=== PATIENT | female | born 1990 | race Caucasian/White ===

== ENCOUNTER 2023-12-12 16:14 | Outpatient (REF) | payer MEDICAID, SELFPAY ==
[2023-12-12 17:34] LABS: Bacterial Vaginosis PCR NEGATIVE (Negative); Candida Group PCR DETECTED (Not Detect); Candida glab krusei PCR NOT DETECTED (Not Detect); Trichomonas vaginalis PCR NOT DETECTED (Not Detect)
[2023-12-12 17:56] LABS: CT PCR NOT DETECTED (Not Detect.); NG PCR NOT DETECTED (Not Detect.)
== END 2023-12-12 16:15 | disposition home or self-care (01) ==
LOC: HO.HHCLNP 16:14
PROVIDERS: Visit Provider Nurse Practitioner Family
DX: R30.0 Dysuria (principal); N89.8 Other specified noninflammatory disorders of vagina
CPT/HCPCS: 0352U; 87086; 87491; 87591

== ENCOUNTER 2023-12-13 08:54 | Outpatient (REF) | payer MEDICAID, SELFPAY ==
[2023-12-13 12:05] LABS: Alanine Aminotransferase 23 U/L (0-31); Albumin Level 4.4 g/dL (3.5-5.0); Alkaline Phosphatase 66 U/L (39-117); Anion Gap 15 (12-20); Aspartate Amino Transferase 25 U/L (5-31); Bilirubin Total 0.2 mg/dL (0.0-1.0); Blood Urea Nitrogen 10 mg/dL (9-16); Calcium 9.5 mg/dL (8.4-10.2); Carbon Dioxide 22 mmol/L (22-29); Chloride 103 mmol/L (96-108); Cholesterol 141 mg/dL (<200); Estimated Glomerular Filt Rate > 60; Glucose Random 87 mg/dL (60-115); HDL Cholesterol 68 mg/dL (>40); LDL Cholesterol Calculated 65 mg/dL (<100); Potassium 3.7 mmol/L (3.3-5.1); Sodium 136 mmol/L (135-145); Total Protein 8.1 g/dL (6.5-8.0); Triglycerides 42 mg/dL (<150)
[2023-12-13 12:20] LABS: HIV AB/AG Nonreactive (Nonreactive); HIV Num 1 0.47 S/CO (0.00-0.99); ~HepC Num1 0.29 S/CO (0.00-0.79); ~Hepatitis B Surface Antibody REACTIVE (Nonreactive); ~Hepatitis C Antibody Nonreactive (Nonreactive)
[2023-12-15 14:13] LABS: RPR Rapid Plasma Reagin NON-REACTIVE (NON-REACTIVE)
== END 2023-12-13 08:55 | disposition home or self-care (01) ==
LOC: HO.HHCL 08:54
PROVIDERS: Visit Provider Nurse Practitioner Family
DX: Z00.00 Encounter for general adult medical examination without abnormal findings (principal)
CPT/HCPCS: 36415; 80053; 80061; 86592; 86706; 86803; 87389

== ENCOUNTER 2024-04-02 17:44 | Outpatient (REF) | payer MEDICAID, SELFPAY ==
[2024-04-03 06:18] LABS: CT PCR NOT DETECTED (Not Detect.); NG PCR NOT DETECTED (Not Detect.)
[2024-04-03 13:38] LABS: Bacterial Vaginosis PCR NEGATIVE (Negative); Candida Group PCR DETECTED (Not Detect); Candida glab krusei PCR NOT DETECTED (Not Detect); Trichomonas vaginalis PCR NOT DETECTED (Not Detect)
== END 2024-04-02 17:45 | disposition home or self-care (01) ==
LOC: HO.HHCLNP 17:44
PROVIDERS: Visit Provider Internal Medicine
DX: N89.8 Other specified noninflammatory disorders of vagina (principal)
CPT/HCPCS: 0352U; 87491; 87591

== ENCOUNTER 2024-10-23 11:36 | Outpatient (REF) | payer MEDICAID, SELFPAY ==
[2024-10-24 13:07] LABS: Bacterial Vaginosis PCR NEGATIVE (Negative); Candida Group PCR DETECTED (Not Detect); Candida glab krusei PCR NOT DETECTED (Not Detect); Trichomonas vaginalis PCR NOT DETECTED (Not Detect)
--- OUTSIDE RECORDS SUMMARY | 2024-10-24 13:24 | XMS_ITS | Patient Health Record ---
Author Organization Dr. Jeff Gentile Address [address] [facility] [address] [address] Care Team Providers Care Miscellaneous Machine Operator Name Role Phone [facility], Primary Care Provider Unavailable Kym Anderson Unavailable [phone] Reason For Referral No Information Medications Medication SIG (Take, Route, Frequency, Duration) Notes Start Date End Date Status Dulcolax 5 MG 2 tablet as needed Orally twice a day for 2 day(s) 12/13/2019 Not-Taking Fleet Enema 7-19 GM/118ML One at night and one the morning of the procedure two hours earlier Rectal 1 for 2 12/13/2019 Not-Taking Magnesium Citrate 1.745 GM/30ML 296 ml Orally three times a day for 1 day(s) 12/13/2019 Not-Wenceslao ing Omeprazole 20 MG 1 capsule Orally twi ce a day for 30 day(s) 12/13/2019 Active Omeprazole Active Baclofen 10 MG 1 tablet with food o r milk Orally twice a day for 30 day(s) 01/15/2020 Active Social History Tobacco Use: Social History Observation Description Date Details (start date - stop date) Never Smoker NA - NA Tobacco Use/Smoking Question Answer Notes Are you a nonsmoker Problems Problem Type SNOMED Code ICD Code Onset Dates Problem Status W/U Status Risk Notes Problem Constipation, unspecified (K59.00) Active confirmed Problem Left upper quadrant pain (181365394) Left upper quadrant pain (R10.12) Active confirmed Problem Irritable bowel syndrome (34879839) Other irritable bowel syndrome (K58.8) Active confirmed Plan Of Treatment Pending Test Test Name Order Date Colonoscopy 10/30/2019 Colonoscopy 12/13/2019 Insurance Providers Payer Name Payer Address Payer Phone Subscriber Number Group Number Insured Name Patient Relationship to Insured Coverage Start Date Coverage End Date [facility] [address] [address] [place] [address] [id number] Doris Short Self - patient is the insured Medical (General) History Medical History History ICD Code acid reflux Surgical History Surgery Date(Month/Year)
[2024-10-24 13:43] LABS: CT PCR NOT DETECTED (Not Detect.); NG PCR NOT DETECTED (Not Detect.)
== END 2024-10-23 11:37 | disposition home or self-care (01) ==
LOC: HO.HHCLNP 11:36
PROVIDERS: Visit Provider Family Medicine
DX: N89.8 Other specified noninflammatory disorders of vagina (principal)
CPT/HCPCS: 81515; 87491; 87591

== ENCOUNTER 2025-02-08 09:41 | Outpatient (REF) | payer MEDICAID, SELFPAY ==
--- OUTSIDE RECORDS SUMMARY | 2025-02-08 09:00 | XMS_ITS | Encounter Summary ---
Author Organization [employer] Address [address] [facility] 7 [place] [address] Care Team Providers Care Order Packer Name Role Phone Sabiha Salvador NP Primary Care Provider [phone] Reason for Referral * Consultation (Routine) - Authorized Specialty Diagnoses / Procedures Referred By Contcristal t Referred To Contact Dental Courier Delivery Driver / Dentistry Diagnoses Health care maintenance Sabiha Salvador NP [address] [place] [address] Phone: tel: fax: Referral ID Status Reason Start Date Expiration Date Visits Requested Visits Authorized [id number] Authorized Consult and Treat 02/08/2025 02/08/2026 1 1 Reason for Visit * Reason Comments transfer patient Encounter Details Date Type Department Care Team ([facility] Contact Info) Description 02/08/2025 9:00 AM EDT Office Visit [facility] MEDICINE [address] [place] [address] Sabiha Salvador NP [address] [place] [address] 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); Tinea; Encounter for initial prescription of contraceptives, unspecified contraceptive; Bilateral carpal tunnel syndrome; Health care maintenance Social History Tobacco Use Types Packs/Day Years Used Date Smoking Tobacco: Never Smokeless Tobacco: Never Alcohol Use Standard Drinks/Week Comments Not Currently 0 (1 standard drink = 0.6 oz pur e alcohol) socially - beer Depression Answer Date Recorded Patient Health Questionnaire-9 Score 0 02/08/2025 Patient Health Questionnaire-9 Score 0 02/08/2025 Last PHQ-9: Questionnaire Data Not on file 0 02/08/2025 Housing Stability Answer Date Recorded What is your housing situation today? I have vidhi walker 01/31/[address] you li ve. Do you have problems with any of the following? None of the above 01/31/2025 Food Insecurity Answer Date Recorded Within the past 12 months, y ou worried that your food would run out before you got money to buy more: Never True 01/31/2025 Within the past 12 months,th e food you bought just didn't last and you didn't have enough money to get more: Never True Transportation Answer Date Recorded In the past 12 months, has l ack of transportation kept you from medical appts, meetings, work or from getting things needed for daily living? No 01/31/2025 Utilities Answer Date Recorded In the past 12 months, has t he electric, gas, oil or water company threatened to shut off services in your home? No 01/31/2025 Depression Answer Date Recorded Patient Health Questionnaire-2 Score 0 02/08/2025 Internet Access Answer Date Recorded Internet Access Q1 Yes 01/31/2025 Internet Access Q2 Not on file 01/31/2025 Comments Unknown Sex and Gender Information Value Date Recorded Sex Assigned at Female 09/21/2023 11:17 AM EDT Legal Sex Female 1:42 PM EDT Gender Identity Female 09/21/2023 11:17 AM EDT Sexual Orientation Straight 03/26/2024 12 :30 PM EST documented as of this encounter Last Filed Vital Signs Vital Sign Reading Time Taken Comments Blood Pressure 122/80 02/08/2025 9:07 AM EDT Pulse 98 02/08/2025 9:07 AM EDT Temperature 36.8 C (98.3 F) 02/08/2025 9:07 AM EDT Respiratory Rate 22 02/08/2025 9:07 AM EDT Oxygen Saturation 99% 02/08/2025 9:07 AM EDT Inhaled Oxygen Concentration - - Weight 69.4 kg (153 lb) 02/08/2025 9:07 AM EDT Height 170.2 cm (5' 7 ) 02/08/2025 9:07 AM EDT Body Mass Index 23.96 02/08/2025 9:07 AM EDT documented in this encounter Functional Status * Over the past 2 weeks, how often have you been bothered by any of the following problems? Question Answer Date of Assessment Author Patient Health Questionnaire -2 Score 0 02/08/2025 9:37 AM EDT Blue Lauren MA * Little interest or pleasure in doing things Answer Date of Assessment Author Not at all 02/08/2025 9:37 AM EDT Blue Lauren MA * Feeling down, depressed, or hopeless Answer Date of Assessment Author Not at all 02/08/2025 9:37 AM EDT Blue Lauren MA * Trouble falling or staying asleep, or sleeping too much Answer Date of Assessment Author Not at all 02/08/2025 9:37 AM EDT Blue Lauren MA * Feeling tired or having little energy Answer Date of Assessment Author Not at all 02/08/2025 9:37 AM EDT Blue Lauren MA * Poor appetite or overeating Answer Date of Assessment Author Not at all 02/08/2025 9:37 AM EDT Blue Lauren MA * Feeling bad about yourself - or that you are a failure or have let yourself or your family down Answer Date of Assessment Author Not at all 02/08/2025 9:37 AM EDT Blue Lauren MA * Trouble concentrating on things, such as reading the newspaper or watching television Answer Date of Assessment Author Not at all 02/08/2025 9:37 AM EDT Blue Lauren MA * Moving or speaking so slowly that other people could have noticed? Or the opposite - being so fidgety or restless that you have been moving around a lot more than usual. Answer Date of Assessment Author Not at all 02/08/2025 9:37 AM JAYDENT Blue Lauren MA * Thoughts that you would be better off or hurting yourself in some way Answer Date of Assessment Author Not at all 02/08/2025 9:37 AM JAYDENT Blue Lauren MA * Patient Health Questionnaire-9 Score Answer Date of Assessment Author 0 02/08/2025 9:37 AM EDT Blue Lauren MA * Over the last 2 weeks, how often have you been bothered by any of the following problems? Question Answer Date of Assessment Author Feeling nervous, anxious, or on edge 0 02/08/2025 9:37 AM EDT Blue Lauren MA Not being able to stop or co ntrol worrying 0 02/08/2025 9:37 AM EDT Blue Lauren MA Worrying too much about diff erent things 0 02/08/2025 9:37 AM EDT Blue Lauren MA Trouble relaxing 0 02/08/2025 9:37 AM EDT Blue Poe MA Being so restless that it is hard to sit still 0 02/08/2025 9:37 AM EDT Blue Lauren MA Becoming easily annoyed or irritable 0 02/08/2025 9:37 AM EDT Blue Lauren MA Feeling afraid as if somethi ng awful might happen 0 02/08/2025 9:37 AM EDT Blue Lauren MA AKIRA-7 Total Score 0 02/08/2025 9:37 AM EDT Blue Lauren MA documented as of this encounter Miscellaneous Notes * Assessment & Plan Note - Sabiha Salvador NP - 02/08/2025 9:00 AM EDTAssociated Problem(s): Chronic candidiasis of vulva and vagina Orders: Basic Metabolic Panel; Future Hemoglobin A1c; Future * Assessment & Plan Note - Sabiha Salvador NP - 02/08/2025 9:00 AM EDTAssociated Problem(s): Tinea * Assessment & Plan Note - Sabiha Salvador NP - 02/08/2025 9:00 AM EDTAssociated Problem(s): Bilateral carpal tunnel syndrome documented in this encounter Plan of Treatment Upcoming Encounters Date Type Department Care Team (Late st Contact Info) Description 05/01/2025 9:30 AM EST Office Visit [facility] MEDICINE [address] [place] [address] Sabiha Salvador NP [address] [place] [address] Scheduled Orders Name Type Priority Associated Diagnoses Orde r Schedule Basic Metabolic Panel Lab Routine Chronic candidiasis of vulva and vagina Expected: 02/08/2025 (Approximate), Expires: 02/08/2026 Hemoglobin A1c Lab Routine Chronic candidiasis of vulva and vagina Expected: 02/08/2025 (Approximate), Expires: 02/08/2026 Scheduled Referrals Name Type Priority Associated Diagnoses Orde r Schedule Referral to [facility] Dental Adult Outpatient Referral Routine Health care maintenance Expected: 02/08/2025 (Approximate), Expires: 02/08/2026 documented as of this encounter Visit Diagnoses Diagnosis Chronic candidiasis of vulva and vagina- Primary Tinea Dermatophytosis of unspecified site Encounter for initial prescription of contraceptives, unspecified contraceptive Bilateral carpal tunnel syndrome Carpal tunnel syndrome documented in this encounter Additional Health Concerns Assessment Noted Time PHQ-9 Depression Total Score: 0 02/09/20 25 9:37 AM EDT documented as of this encounter Care Teams Order Packer Relationship Specialty Start Date End Date Sabiha Salvador NP [address] [place] [address] PCP - General Family Medicine 01/17/24 documented as of this encounter
--- OUTSIDE RECORDS SUMMARY | 2025-02-08 10:43 | XMS_ITS | Encounter Summary ---
Author Organization [employer] Address [address] [place] [address] Care Team Providers Care Diver Helper Name Role Phone Sabiha Salvador NP Primary Care Provider [phone] Encounter Details Date Type Department Care Team (Latest Contact Info) Description 02/08/2025 Travel Social History Tobacco Use Types Packs/Day Years [...] PM EST documented as of this encounter Functional Status * Over the [...] 9:37 AM JAYDENT Blue Lauren MA * Feeling tired or [...] 9:37 AM JAYDENT Blue Lauren MA * Trouble concentrating on things, such as reading the newspaper or watching television Answer Date of Assessment Author Not at all 02/08/2025 9:37 AM JAYDENT Blue Lauren MA * Moving or speaking so slowly that other people could have noticed? Or the opposite - being so fidgety or restless that you have been moving around a lot more than usual. Answer Date of Assessment Author Not at all 02/08/2025 9:37 AM EDT Blue Lauren MA * Thoughts that you would be better off or hurting yourself in some way Answer Date of Assessment Author Not at all 02/08/2025 9:37 AM EDT Blue Lauren MA * Patient Health Questionnaire-9 [...] annoyed or irritable 0 02/08/2025 9:37 AM JAYDENT Blue Lauren MA Feeling afraid as if somethi ng awful might happen 0 02/08/2025 9:37 AM EDT Blue Lauren MA AKIRA-7 Total Score 0 02/08/2025 9:37 AM JAYDENT Blue Lauren MA documented as of this encounter Plan of Treatment Upcoming Encounters Date Type Department Care Team (Late st Contact Info) Description 05/01/2025 9:30 AM EST Office Visit [facility] MEDICINE [address] [place] [address] Sabiha Salvador NP [address] [place] [address] documented as of this encounter Visit Diagnoses Not on filedocumented in this encounter Additional Health Concerns Assessment Noted Time PHQ-9 Depression Total Score: 0 02/09/20 25 9:37 AM EDT documented as of this encounter Care Teams Diver Helper Relationship Specialty Start Date End Date Sabiha Salvador NP [address] [place] [id number] PCP - General Family Medicine 01/17/24 documented as of this encounter
--- OUTSIDE RECORDS SUMMARY | 2025-02-08 10:43 | XMS_ITS | Encounter Summary ---
Author Organization [employer] Address [address] [address] [place] [address] Care Team Providers Care Instructional Leader Name Role Phone Sabiha Salvador NP Primary Care Provider [phone] Encounter Details Date Type Department Care Team ([facility] Contact Info) Description 06/24/[address] [facility] MEDICINE [address] [place] [address] Provider, MD Katalina Social History Tobacco Use Types Packs/Day Years Used Date Smoking Tobacco: Never Smokeless Tobacco: Never Alcohol Use Standard Drinks/Week Comments Not Currently 0 (1 standard drink = 0.6 oz pur e alcohol) socially - beer Depression Answer Date Recorded Patient Health Questionnaire-9 Score 1 12/12/2023 Patient Health Questionnaire-9 Score 1 12/12/2023 Last PHQ-9: Questionnaire Data Not on file 0 12/12/2023 Housing Stability Answer Date Recorded What is your housing situation today? I have vidhikayy walker 12/05/[address] you li ve. Do you have problems with any of the following? None of the above 12/05/2023 Food Insecurity Answer Date Recorded Within the past 12 months, y ou worried that your food would run out before you got money to buy more: Never True 12/05/2023 Within the past 12 months,th e food you bought just didn't last and you didn't have enough money to get more: Never True Transportation Answer Date Recorded In the past 12 months, has l ack of transportation kept you from medical appts, meetings, work or from getting things needed for daily living? No 12/05/2023 Utilities Answer Date Recorded In the past 12 months, has t he gBox, gas, oil or water company threatened to shut off services in your home? No 12/05/2023 Depression Answer Date Recorded Patient Health Questionnaire-2 Score 0 12/12/2023 Internet Access Answer Date Recorded Internet Access Q1 Yes 01/16/2024 Internet Access Q2 Not on file 01/16/2024 Comments Unknown Sex and Gender Information Value Date Recorded Sex Assigned at Female 09/21/2023 11:17 AM EDT Legal Sex Female 1:42 PM EDT Gender Identity Female 09/21/2023 11:17 AM EDT Sexual Orientation Straight 03/26/2024 12 :30 PM EST documented as of this encounter Plan of Treatment Upcoming Encounters Date Type Department Care Team (Late st Contact Info) Description 05/01/2025 9:30 AM EST Office Visit [facility] MEDICINE [address] [place] [address] Sabiha Salvador NP [address] [place] [address] documented as of this encounter Procedures Procedure Name Priority Date/Time Associated Diagnosis Comments HM PAP/HPV Routine 06/25/2022 6:05 PM EST documented in this encounter Results * HM PAP/HPV (06/25/2022 6:05 PM EST) us Historical Provider HEALTH MAINTENANCE Final Result documented in this encounter Visit Diagnoses Not on filedocumented in this encounter Additional Health Concerns Assessment Noted Time PHQ-9 Depression Total Score: 1 12/12/19 24 3:10 PM EDT documented as of this encounter Care Teams Instructional Leader Relationship Specialty Start Date End Date Sabiha Salvador NP [address] [place] [address] PCP - General Family Medicine 01/17/24 documented as of this encounter
--- OUTSIDE RECORDS SUMMARY | 2025-02-08 10:43 | XMS_ITS | Encounter Summary ---
Author Organization [employer] Address [address] [place] [address] Care Team Providers Care Hatchery Helper Name Role Phone Thelma Carr Primary Care Provider [phone] Sabiha Salvador NP Primary Care Provider Encounter Details Date Type Department Care Team ([facility] st Contact Info) Description 12/12/2023 Orders Only [facility] [address] [place] [address] Thelma Carr FNP [address] [place] [address] Social History Tobacco Use Types Packs/Day Years [...] housing situation today? I have vidhi walker 12/05/[address] you [...] Recorded Patient Health Questionnaire-2 Score 0 12/12/2023 Comments Unknown Sex and Gender Information Value [...] Author Patient Health Questionnaire -2 Score 0 12/12/2023 3:10 PM EDT Mandeep Strong MA * Over the last 2 weeks, how often have you been bothered by any of the following problems? Question Answer Date of Assessment Author Feeling nervous, anxious, or on edge 0 12/12/2023 3:10 PM EDT Mandeep Strong MA Not being able to stop or control worrying 0 12/12/2023 3:10 PM EDT Mandeep Strong MA Worrying too much about different things 0 12/12/2023 3:10 PM JAYDENT Mandeep Strong MA Trouble relaxing 0 12/12/2023 3:10 PM EDT Majo Esposito MA Being so restless that it is hard to sit still 0 12/12/2023 3:10 PM JAYDENT Mandeep Strong MA Becoming easily annoyed or irritable 0 12/12/2023 3:10 PM EDT Mandeep Strong MA Feeling afraid as if somethi ng awful might happen 0 12/12/2023 3:10 PM EDT Mandeep Strong MA AKIRA-7 Total Score 0 12/12/2023 3:10 PM EDT Majo Strong MA * Over the past 2 weeks, how often have you been bothered by any of the following problems? Question Answer Date of Assessment Author Little interest or pleasure in doing things Not at all 12/12/2023 3:10 PM EDT Mandeep Strong MA Feeling down, depressed, or hopeless Not at all 12/12/2023 3:10 PM EDT Mandeep Strong MA Trouble falling or staying asleep, or sleeping too much Not at all 12/12/2023 3:10 PM EDT Majo Strong MA Feeling tired or having little energy Several days 12/12/2023 3:10 PM JAYDENT Mandeep Strong MA Poor appetite or overeating Not at all 12/12/2023 3: 10 PM EDT Majo Strong MA Feeling bad about yourself - or that you are a failure or have let yourself or your family down Not at all 12/12/2023 3:10 PM EDT Mandeep Strong MA Trouble concentrating on things, such as reading the newspaper or watching television Not at all 12/12/2023 3:10 PM JAYDENT Mandeep Strong MA Moving or speaking so slowly that other people could have noticed? Or the opposite - being so fidgety or restless that you have been moving around a lot more than usual. Not at all 12/12/2023 3:10 PM JAYDENT Mandeep Strong MA Thoughts that you would be better off or hurting yourself in some way Not at all 12/12/2023 3:10 PM EDT Carmen Strong MA Patient Health Questionnaire-9 Score 1 12/12/2023 3:10 PM EDT Kyree Strong MA documented as of this encounter Miscellaneous Notes * Result Encounter Note - Nicole Roth MD - 12/12/2023 7:13 PM EDT Vag swab on 04/02 showed vaginal candidiasis. Please call patient and tell her that she needs rx with Diflucan q 72h x 3 doses (like Tue-Tue-Tue) since she co residual sxs after last rx and currentlyhas more sxs. Please advise to fu with PCP documented in this encounter Plan of Treatment Upcoming Encounters Date Type Department Care Team (Late st Contact Info) Description 05/01/2025 9:30 AM EST Office Visit [facility] MEDICINE [address] [place], [place] [phone] Sabiha Salvador NP [address] [place], [place] [phone] documented as of this encounter Procedures Procedure Name Priority Date/Time Associated Diagnosis Comments BACTERIAL VAGINOSIS PANEL Routine 04/02/2024 1:39 PM EST documented in this encounter Results * (ABNORMAL) Bacterial Vaginosis (04/02/2024 1:39 PM EST) TRICHOMONAS VAGINALIS DETECTION BY PCR NOT DETECTED Not Detect [facility] BACTERIAL VAGINOSIS DETECTION BY PCR NEGATIVE Negative [facility] Comment:The BV organism targ ets of the Xpert Xpress MVP test can becommensal in women; Xpert Xpress MVP positive results forbacterial vaginosis should be considered in conjunction withother clinical and patient information to determine thedisease status. Organisms that are not detected by the XpertXpress MVP test have also been reported to be associatedwith BV and aerobic vaginitis.The Xpert Xpress MVP test performance has not been evaluatedin patients under the age of 14. MARYA GROUP DETECTION BY PCR DETECTED(A) Not Detect [facility] Marya glab krusei PCR NOT DETECTED Not Detect [facility] 04/02/2024 1:39 PM EST 04/02/2024 5:56 PM EST us Nicole Roth MD LAB MICROBIOLOGY - GENER AL ORDERABLES Final Result [facility] [address] [place] [address] [phone] documented in this encounter Visit Diagnoses Not on filedocumented in this encounter Additional Health Concerns Assessment Noted Time PHQ-9 Depression Total Score: 1 12/12/19 24 3:10 PM EDT documented as of this encounter Care Teams Hatchery Helper Relationship Specialty Start Date End Date Thelma Carr FNP [address] [place] [address] PCP - General Family Medicine 12/12/23 01/16/24 Sabiha Salvador NP [address] [place] [address] PCP - General Family Medicine 01/17/24 documented as of this encounter
--- OUTSIDE RECORDS SUMMARY | 2025-02-08 10:43 | XMS_ITS | Clinical Summary ---
Author Organization [employer] Address [address] [facility] [address] [place] [address] Care Team Providers Care Harness Brusher Name Role Phone Sabiha Salvador NP Primary Care Provider [phone] Allergies No known active allergies Medications fluticasone (Flonase) 50 MCG/ACT nasal spray Administer 1 spray into each nostril Once per day. 16 g 2 04/02/20 24 Active acyclovir (Zovirax) 800 MG tabletIndications :Herpes Simplex Infection Take 3 tabs a day for 2 days 6 tablet 1 10/24/19 25 Active nystatin-triamcin olone (Mycolog II) ointmentIndicatio ns:Rash of foot Apply topically 2 times daily. 15 g 10/24/19 25 Active fluconazole (Diflucan) 150 MG tablet Take 1 tablet (150 mg) by mouth every 3rd (third) day for 9 days. 3 tablet 02/09/20 25 025 Active fluconazole (Diflucan) 150 MG tablet Take 1 tablet (150 mg) by mouth 1 (one) time per week. 25 tablet 02/09/20 25 026 Active ketoconazole (NIZOral) 2 % cream Apply topically Once per day for 14 days. 50 g 02/09/20 25 025 Active norethindrone (Micronor) 0.35 MG tabletIndications :Encounter for initial prescription of contraceptives, unspecified contraceptive Take 1 tablet (0.35 mg) by mouth Once per day. 28 tablet 2 02/09/20 25 026 Active fluconazole (Diflucan) 150 MG tablet Take 1 tab po Q72h (3d) x 3 doses 3 tablet 04/25/20 025 Discontin ued(Thera py completed ) Active Problems Problem Noted Date Diagnosed Date Tinea 02/08/2025 Assessment & Plan (02/08/2025 9:35 AM EDT): Bilateral carpal tunnel syndrome 02/08/2025 Assessment & Plan (02/08/2025 9:35 AM EDT): Chronic candidiasis of vulva and vagina 04/25/20 Assessment & Plan (02/08/2025 9:35 AM EDT): Orders: Basic Metabolic Panel; Future Hemoglobin A1c; Future Assessment & Plan (04/25/2024 10:48 AM EST): Pt with reoccurring vaginal minh post menses , 3 bouts over 12 months On hand rx sent for days 1,3,7 If does reoccur will treat with once weekly therapy for suppression Acute nasopharyngitis 04/02/2024 Assessment & Plan (04/02/2024 1:45 PM EST): Rapid viral tests are NEG today. Rest (sleep at least 8 hours a night). Out of work x 2d. Hydrate with plenty of water (avoid caffeine and alcohol). Use saline nose drops to loosen mucus, Floanse Take Acetaminophen (Tylenol )/Ibuprofen as needed to reduce fever, headache, body aches or discomfort Gargle with salt water and use throat sprays/lozenges for throat pain. Use heated, humidified air. If you do not have a humidifier, take hot showers. Vaginal discharge 04/02/2024 Assessment & Plan (04/02/2024 1:44 PM EST): Not at the time, intermittent x 3+ mo. Order vaginal swab and fu with PCP Advised against vaginal douches, use of lubricant or spermicide. She's to fu with PCP, we'll call her prn POS results only. Abnormal uterine bleeding 06/11/2022 Overview (12/09/2023): Last Assessment & Plan: Discussed that amenorrhea was likely due to micronor. Recent bleeding episodes are likely due to atrophic bleeding. However, pelvic ultrasound ordered to rule out other causes. Copy of order printed for patientAnnia Pritchett notified. Patient instructed to call in a week to schedule appointment. She was instructed to schedule a follow- up appointment within 1-2 weeks of ultrasound to review results. Recommended to bring a copy of report if possible. CBC ordered to rule out anemia due to chronic blood loss. Ibuprofen 800 mg ordered. Patient instructed to take q8h on heavy days to decrease flow and pain. Dyspareunia in female 06/11/2022 Overview (12/09/2023): Last Assessment & Plan: She is due for a pap smear. Pelvic exam recommended to evaluate dyspareunia. Plan to schedule her for a pap smear and pelvic exam next week when her menses has completed. Irritable bowel syndrome 06/11/2022 Encounter for surveillance of contraceptive pill s 10/07/2021 Overview (12/09/2023): Tamar Mother currently breast-feeding 10/07/2021 Encounters Date Type Department Care Team Description 02/08/2025 9:00 AM EDT Office Visit [address] [id number] Sabiha Salvador NP 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); Tinea; Encounter for initial prescription of contraceptives, unspecified contraceptive; Bilateral carpal tunnel syndrome; Health care maintenance 02/08/2025 Travel 02/07/[address] [address] Sabiha Salvador NP CHARTPREP 01/31/2025 Patient Outreach [address] [address] Sabiha Salvador NP Pre-visit Planning (SDOH screening negative and Tobacco screening negative) 11/27/[address] [address] Vivian Keating [place] Anxiety (9:00) from Last 3 Months Immunizations Immunization Administration Dates Next Due INFLUENZA INJECTABLE QUADRIV ALANT CCIIV4 MDCK Multi-dose vial 05/31/2019 Td (adult), 5 Lf tetanus tox oid, preservative free, adsorbed 05/31/2019 Family History Medical History Relation Name Comments Diabetes type II Mother Hyperlipidemia Mother Sleep apnea Mother Cervical cancer Mother's Sister Relation Name Status Comments Mother Mother's Sister Social History Tobacco Use Types Packs/Day Years Used Date Smoking Tobacco: Never Smokeless Tobacco: Never Tobacco Cessation:Counseling Given: Not Answered Alcohol Use Standard Drinks/Week Comments Not Currently [...] Orientation Straight 03/26/2024 12 :30 PM EST Last Filed Vital Signs Vital Sign Reading [...] Mass Index 23.96 02/08/2025 9:07 AM EDT Plan of Treatment Upcoming Encounters Date Type Department Care Team (Late st Contact Info) Description 05/01/2025 9:30 AM EST Office Visit [facility] [address] [place], [place] [phone] Sabiha Salvador NP [address] [place] [address] Health Maintenance Due Date Last Done Comments Family Planning (PISQ) 01/30/2004 HPV Vaccines (1 - 3-dose series) 01/30/2004 Hepatitis B Vaccines (1 of 3 - 19+ 3-dose series) 01/30/2008 DTaP/Tdap/Td Vaccines (1 - Tdap) 06/01/2019 05/31/2019 COVID-19 Vaccine (1 - 2023-2 5 season) 2025 Influenza Vaccine (#1) 2025 05/31/2019 Disability Screening 10/23/2025 10/23/2024 SDOH Screening 01/31/2026 01/31/2025 Alcohol/Substance Use Screening 02/08/2026 02/08/2025 Depression Screening 02/08/2026 02/08/2025, 02/08/2025 Tobacco Screening 02/08/2026 02/08/2025 Cervical Cancer Screening 06/25/2027 HPV/Cotest 06/25/2027 Pap Smear 06/25/2027 06/25/2022 Zoster Vaccines (1 of 2) 2039 RSV Patients and Patients Aged 60 years or older (1 - 1-dose 75+ series) 01/30/2064 HIV Screening Completed 12/13/2023 Hepatitis C Screening Completed 12/13/2023 , 02/18/2022 HIB Vaccines Aged Out No longer eligi ble based on patient's age to complete this topic Hepatitis A Vaccines Aged Out No long er eligible based on patient's age to complete this topic IPV Vaccines Aged Out No longer eligi ble based on patient's age to complete this topic Meningococcal B Vaccine Aged Out No l onger eligible based on patient's age to complete this topic Meningococcal Vaccine Aged Out No tomas yue eligible based on patient's age to complete this topic Pneumococcal Vaccine: Pediatrics (0 to 5 Years) and At-Risk Patients (6 to 49) Years Aged Out No longer eligible b ased on patient's age to complete this topic RSV under 20 months Aged Out No longe r eligible based on patient's age to complete this topic Rotavirus Vaccines Aged Out No longer eligible based on patient's age to complete this topic Procedures Procedure Name Priority Date/Time Associated Diagnosis Comments HEPATITIS C AB W/REFL TO HCV RNA, QN, PCR Routine 12/13/2023 9:00 AM EDT Routine health maintenance HIV 1/2 ANTIGEN/ANTIBODY, FOURTH GENERATION W/RFL Routine 12/13/2023 9:00 AM EDT Routine health maintenance HM PAP/HPV Routine 06/25/2022 6:05 PM EST from Last 3 Months or Most Recently Relevant to Health Maintenance Results * Hepatitis C Antibody with Reflex to HCV, RNA, Quantitative, Real-Time PCR (12/13/2023 9:00 AM EDT) Hepatitis C Antibody Nonreactive Nonreactive [facility] Comment:Antibodies to HCV no t detected; does not exclude early acuteHCV infection. Blood Venous blood specimen / Unknown 12/13/2023 9:00 AM EDT 12/13/2023 11:20 AM EDT Thelma Carr [facility] BLOOD ORDERABLES Final Resu lt Performing Organization Address [facility]/ZIP Co de Phone Number [facility] [address] [place] [address] [phone] * HIV-1/2 Antigen and Antibodies, Fourth Generation, with Reflexes (12/13/2023 9:00 AM EDT) HIV AB/AG Nonreactive Nonreactive [facility] Comment:HIV-1 p24 Ag and/or HIV-1/HIV-2 Ab not detected.A test result that is nonreactive does not exclude thepossibility of exposure to or infection with HIV-1 and/orHIV-2. Nonreactive results in this assay for individualswith prior exposure to HIV-1 and/or HIV-2 may be due toantigen and antibody levels that are below the limit ofdetection of this assay.The [employer] HIV Ag/Ab Combo assay result andsupplemental assay results should be interpreted inconjunction with the patient's clinical presentation,history and other laboratory results. If the results areinconsistent with clinical evidence, additional testing issuggested to confirm the result. Blood Venous blood specimen / Unknown 12/13/2023 9:00 AM EDT 12/13/2023 11:20 AM EDT Thelma Cabell [facility] LAB BLOOD ORDERABLES Final Resu lt Performing Organization Address [facility]/ZIP Co de Phone Number [facility] [address] [place] [address] [phone] * HM PAP/HPV (06/25/2022 6:05 PM EST) Historical Provider HEALTH MAINTENANCE Final Result from Last 3 Months or Most Recently Relevant to Health Maintenance Insurance [employer] Care Teams Harness Brusher Relationship Specialty Start Date End Date Sabiha Salvador NP [address] [place] [phone] PCP - General Family Medicine 01/17/24
--- OUTSIDE RECORDS SUMMARY | 2025-02-08 10:43 | XMS_ITS | Encounter Summary ---
Author Organization [employer] Address [address] [place] [address] Care Team Providers Care Tube Machine Operator Name Role Phone Sabiha Salvador NP Primary Care Provider [phone] Encounter Details Date Type Department Care Team ([facility] Contact Info) Description 04/03/2024 Orders Only [facility] [address] [place] [address] Nicole Roth MD [address] [place] [address] Candidiasis of genitalia in female (Primary Dx) Social History Tobacco Use Types Packs/Day Years [...] 9:30 AM EST Office Visit [facility] [address] [place] [phone] Sabiha Salvador NP [address] [place] [address] documented as of this encounter Visit Diagnoses Diagnosis Candidiasis of genitalia in female- Primary documented in this encounter Additional Health Concerns Assessment Noted Time PHQ-9 Depression Total Score: 1 12/12/19 24 3:10 PM EDT documented as of this encounter Care Teams Tube Machine Operator Relationship Specialty Start Date End Date Sabiha Salvador NP [address] [place] [address] PCP - General Family Medicine 01/17/24 documented as of this encounter
--- OUTSIDE RECORDS SUMMARY | 2025-02-08 10:43 | XMS_ITS | Encounter Summary ---
Author Organization [employer] Address [address] [facility] [address] [place] [address] Care Team Providers Care Deep Sea Diver Name Role Phone Sabiha Salvador NP Primary Care Provider [phone] Reason for Visit * Reason Onset Date Comments CHARTPREP 02/07/2025 Encounter Details Date Type Department Care Team ([facility] Contact Info) Description 02/07/2025 Telephone [facility] [address] [place] [address] Sabiha Salvador NP [address] [place] [address] CHARTPREP Social History Tobacco Use Types Packs/Day Years [...] PM EST documented as of this encounter Miscellaneous Notes * Telephone Encounter - Blue Lauren [place] - 02/07/2025 8:59 AM EDT Chart Prep Labs: done except BV and RPR Images: done Referrals: not applicable Vaccines due: Covid, Flu, Tdap, Hep B, and HPV Screenings: not applicable Overdue care gaps: SBIRT, PHQ-9, AKIRA-7, and Disability screen documented in this encounter Plan of Treatment Upcoming Encounters Date Type Department Care Team (Late st Contact Info) Description 05/01/2025 9:30 AM EST Office Visit [facility] [address] [place] [address] Sabiha Salvador NP [address] [place] [address] documented as of this encounter Visit Diagnoses Not on filedocumented in this encounter Additional Health Concerns Assessment Noted Time PHQ-9 Depression Total Score: 1 12/12/19 24 3:10 PM EDT documented as of this encounter Care Teams Deep Sea Diver Relationship Specialty Start Date End Date Sabiha Salvador NP [address] [place] [address] PCP - General Family Medicine 01/17/24 documented as of this encounter
[2025-02-08 11:56] LABS: Hemoglobin A1C 97.1914 umol/L; Total Hemoglobin (HGBA1C) 2579.2467 umol/L
[2025-02-08 12:00] LABS: Anion Gap 8 (12-20); Blood Urea Nitrogen 8 mg/dL (9-16); Calcium 8.9 mg/dL (8.4-10.2); Carbon Dioxide 26 mmol/L (22-29); Chloride 109 mmol/L (96-108); Estimated Glomerular Filt Rate > 60; Potassium 4.3 mmol/L (3.3-5.1); Sodium 139 mmol/L (135-145)
== END 2025-02-08 09:42 | disposition home or self-care (01) ==
LOC: HO.HHCL 09:41
PROVIDERS: Family Medicine; PCP Nurse Practitioner Family; Visit Provider Nurse Practitioner Family
DX: R21 Rash and other nonspecific skin eruption (principal); B37.32 Chronic candidiasis of vulva and vagina
CPT/HCPCS: 36415; 80048; 83036; 86592